=== PATIENT | male | born 2000 | race African-American/Black ===

== ENCOUNTER 2022-01-02 15:15 | Emergency (ER) | payer MEDICAID, OTHER ==
[~2022-01-02] VITALS: Ht 172.7 cm; Wt 63.5 kg
[~2022-01-02 15:15] MED LIST: NO REPORTED MEDS
[2022-01-02 15:30] VITALS: BP 130/70
[2022-01-02] MEDS ORDERED: IBUP-1955 PO (16:30)
[2022-01-02] MEDS ORDERED: KETOROLAC TROMETHAMINE INJ 60 MG/2 ML VIAL IM ONE (16:30)
[2022-01-02] MEDS ORDERED: CYCL10TA9 PO (16:30)
[2022-01-02] MEDS ORDERED: KETOROLAC TROMETHAMINE INJ 30 MG/ML VIAL ONE (16:34)
== END 2022-01-02 16:48 | disposition home or self-care (01) ==
LOC: ER 15:49
DX: S16.1XXA Strain of muscle, fascia and tendon at neck level, initial encounter (principal); S39.012A Strain of muscle, fascia and tendon of lower back, initial encounter; Z79.899 Other long term (current) drug therapy; V49.49XA Driver injured in collision with other motor vehicles in traffic accident, initial encounter; Y93.89 Activity, other specified; Y92.413 State road as the place of occurrence of the external cause; Y99.8 Other external cause status
CPT/HCPCS: 99283; 96372; J1885

== ENCOUNTER 2023-07-20 16:25 | Emergency (ER) | payer OTHER ==
[~2023-07-20] VITALS: Ht 172.7 cm; Wt 63.5 kg
[~2023-07-20 16:25] MED LIST changes: +CYCL10TA9 PO; +IBUP-1955 PO
[2023-07-20 19:34] LABS: BASOPHILS % (AUTO) 0.2 % (0.0-2.0); EOSINOPHILS # (AUTO) 0.1 K/uL (0.0-0.7); EOSINOPHILS % (AUTO) 0.5 % (0.0-6.0); HEMATOCRIT 46 % (39-51); HEMOGLOBIN 15.1 g/dL (13.5-17.5); LYMPHOCYTES # (AUTO) 1.9 K/uL (0.8-4.8); LYMPHOCYTES % (AUTO) 18.2 % (20.0-44.0); MEAN CORPUSCULAR HEMOGLOBIN 30 PG (26.0-33.0); MEAN CORPUSCULAR HGB CONC 33 g/dl (31.0-36.0); MEAN CORPUSCULAR VOLUME 91 fL (80-96); MONOCYTES # (AUTO) 0.8 K/uL (0.1-1.30); MONOCYTES % (AUTO) 7.3 % (2.0-12.0); NEUTROPHILS # (AUTO) 7.8 K/uL (1.8-8.9); NEUTROPHILS % (AUTO) 73.8 % (43.0-81.0); PLATELET COUNT (AUTO) 304 K/uL (150-450); RED BLOOD CELL COUNT(AUTO) 5.05 MIL/uL (4.5-6.0); RED CELL DISTRIBUTION WIDTH 14.7 % (11.5-15.0); WHITE BLOOD COUNT (AUTO) 10.5 K/uL (4.3-11.0)
[2023-07-20] MEDS: CYCLOBENZAPRINE 10 MG TABLET PO ONE (19:35)
[2023-07-20] MEDS ORDERED: CYCLOBENZAPRINE 10 MG TABLET ONE (19:35)
[2023-07-20 19:40] LABS: CALCIUM, SERUM 9.7 mg/dL (8.5-10.1); CREATININE 0.9 mg/dL (0.6-1.3); POTASSIUM 3.9 mmol/L (3.5-5.1)
[2023-07-20] MEDS ORDERED: CYCL5TAB PO (20:50)
[2023-07-20 21:12] VITALS: BP 126/82; TEMP 98; O2SAT 98
== END 2023-07-20 21:13 | disposition home or self-care (01) ==
LOC: ER 16:25
DX: R25.2 Cramp and spasm (principal); F41.9 Anxiety disorder, unspecified
CPT/HCPCS: 36415; 80048-TC; 85025-TC